=== PATIENT | female | born 1955 | race Two or more races ===

== ENCOUNTER 2019-07-23 12:25 | Outpatient (CLI) | payer MEDICARE, BC | END 2019-07-23 23:59 | disposition home or self-care (01) | LOC: WOU 12:25 | PROVIDERS: ATTEND Surgery | DX: N63.14 Unspecified lump in the right breast, lower inner quadrant (principal); N64.4 Mastodynia; Z80.3 Family history of malignant neoplasm of breast | CPT/HCPCS: G0463 ==